=== PATIENT | male | born 1960 | race Asian ===

== ENCOUNTER 2023-12-20 06:22 | Day surgery (SDC) | payer OTHER, SELFPAY ==
[2023-12-15 06:53] VITALS: BMI 27.9
[2023-12-20 07:59] VITALS: BP 179/80
[2023-12-20 08:07] VITALS: BMI 27.9
[2023-12-20] MEDS: NORMOSOL-R 1000 IV (08:11)
[2023-12-20] MEDS: TYLENOL 1000 MG PO (08:12)
[2023-12-20 09:36] VITALS: BP 125/99
[2023-12-20 09:45] VITALS: BP 129/91
[2023-12-20 10:00] VITALS: BP 142/91
[2023-12-20 10:15] VITALS: BP 157/96
[2023-12-20 10:38] VITALS: BP 163/91
== END 2023-12-20 10:50 | disposition home or self-care (01) ==
LOC: SDS 06:22
PROVIDERS: ATTENDING PHYSICIAN Surgery; FAMILY PHYSICIAN Internal Medicine
DX: K60.1 Chronic anal fissure (principal); K62.89 Other specified diseases of anus and rectum
CPT/HCPCS: 46200; 46230; 36415; 93005